=== PATIENT | female | born 1930 ===

== ENCOUNTER 2017-11-15 17:50 | Inpatient (IN) | payer MEDICARE, OTHER ==
[2017-11-15 17:50] VITALS: BMI 26.5
[2017-11-15] MEDS ORDERED: Albuterol-Ipratrop 3 mg / 0.5 (3 ml) UD INH STA (18:59)
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
[2017-11-15 20:03] LABS: BASO % 0.2 % (0.0-2.0); HEMOGLOBIN 12.8 g/dL (12.0-16.0); LYMPH # 0.9 K/uL (1.0-4.3); LYMPH % 8.5 % (20.0-40.0); MEAN CORPUSCULAR HEMOGLOBIN 32.3 pg (27.0-31.0); MEAN CORPUSCULAR HGB CONC 33.7 g/dL (33.0-37.0); MEAN PLATELET VOLUME 8.2 fl (7.2-11.7); MONO # 0.3 K/uL (0.0-0.8); MONO % 2.5 % (0.0-10.0); NEUT # 9.3 K/uL (1.8-7.0); NEUT % 88.8 % (50.0-75.0); PLATELET COUNT 285 K/uL (130-400); RBC 3.96 Mil/uL (3.80-5.20); RED CELL DISTRIBUTION WIDTH 14.8 % (11.5-14.5); WHITE BLOOD COUNT 10.5 K/uL (4.8-10.8)
[2017-11-15 20:27] LABS: INR 0.9 (0.9-1.2); PARTIAL THROMBOPLASTIN TIME 27.8 Seconds (25.6-37.1); PROTHROMBIN TIME 10.4 Seconds (9.8-13.1)
[2017-11-15 20:30] LABS: ALB/GLOB RATIO 1.2 (1.0-2.1); ALBUMIN 3.5 g/dL (3.5-5.0); ALT/SGPT 35 U/L (9-52); AST/SGOT 29 U/L (14-36); BLOOD UREA NITROGEN 27 mg/dl (7-17); CALCIUM 8.8 mg/dL (8.4-10.2); GFR AFRICAN-AMERICAN > 60; GFR NON-AFRICAN AMERICAN > 60; MAGNESIUM 2.1 MG/DL (1.6-2.3)
[2017-11-15 20:38] LABS: B-TYPE NATRIURETIC PEPTIDE 320 pg/ml (0-900)
[2017-11-15 20:54] LABS: BANDS 3 % (0-2); LYMPHOCYTE 6 % (20-50); MONOCYTE 2 % (0-10); NEUTROPHIL 84 % (42-75); REACTIVE LYMPHOCYTES 5 % (0-0); TOTAL CELLS COUNTED 100
[2017-11-15 20:55] LABS: ANISOCYTOSIS SLIGHT; HYPOCHROMIC SLIGHT; POIKILOCYTOSIS SLIGHT
[2017-11-15 20:56] LABS: OVALOCYTES SLIGHT; SPHEROCYTES SLIGHT; TEARDROP CELLS SLIGHT
[2017-11-15 20:57] LABS: PLATELET ESTIMATE NORMAL (NORMAL)
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
[2017-11-15 21:38] LABS: SQUAMOUS EPITHIAL 1 /hpf (0-5); URINE BACTERIA OCC (<OCC); URINE BILIRUBIN NEGATIVE (NEGATIVE); URINE BLOOD SMALL (NEGATIVE); URINE CLARITY CLOUDY (Clear); URINE COLOR YELLOW (YELLOW); URINE GLUCOSE (UA) >=500 mg/dL (Normal); URINE LEUKOCYTE ESTERASE MOD Leu/uL (Negative); URINE NITRATE NEGATIVE (NEGATIVE); URINE PROTEIN 100 mg/dL (NEGATIVE); URINE UROBILINOGEN 0.2-1.0 mg/dL (0.2-1.0)
[2017-11-15] MEDS ORDERED: Patient's Own Med (Mometasone Furoate [Nasonex] 2 SPRAY) NAS PRN (21:50)
[2017-11-15] MEDS ORDERED: Oxycodone/Acetaminophen 5/325 mg Tab PO PRN (21:50)
[2017-11-15] MEDS ORDERED: Albuterol-Ipratrop 3 mg / 0.5 (3 ml) UD INH PRN (21:53)
[2017-11-15] MEDS ORDERED: levoFLOXacin 750 mg in D5W 150 ML BAG IVPB STA (22:29)
[2017-11-15] MEDS ORDERED: levoFLOXacin 750 mg in D5W 750 MG/150 ML BAG IVPB STA ×2 (22:45→23:30)
[2017-11-15] MEDS ORDERED: levoFLOXacin 750 mg in D5W 750 MG/150 ML BAG IVPB ONE (22:46)
[2017-11-15] MEDS: Insulin Lispro (humaLOG) 100 Units/ml Inj SC SCH (23:08)
[2017-11-16 06:56] LABS: MEAN CELL VOLUME 95.3 fl (81.0-99.0); MEAN CORPUSCULAR HEMOGLOBIN 31.7 pg (27.0-31.0); MEAN CORPUSCULAR HGB CONC 33.2 g/dL (33.0-37.0); RBC 3.77 Mil/uL (3.80-5.20); RED CELL DISTRIBUTION WIDTH 14.5 % (11.5-14.5)
[2017-11-16 08:25] LABS: BLOOD UREA NITROGEN 22 mg/dl (7-17); CALCIUM 8.8 mg/dL (8.4-10.2); GFR AFRICAN-AMERICAN > 60; GFR NON-AFRICAN AMERICAN > 60
[2017-11-16] MEDS ORDERED: guaiFENesin-Codeine 100-10mg/5ml Syrup (5 ml) UD PO PRN (08:53)
[2017-11-16] MEDS ORDERED: levoFLOXacin 750 mg in D5W 750 MG/150 ML BAG IVPB SCH (09:00)
[2017-11-16] MEDS ORDERED: levoFLOXacin 750 mg in D5W 150 ML BAG IVPB SCH (09:00)
[2017-11-16] MEDS ORDERED: methylPREDNISolone 30 MG in Sodium Chloride 0.9% 50 ML IVPB SCH (11:15)
[2017-11-16] MEDS: Insulin Lispro (humaLOG) 100 Units/ml Inj SC SCH ×2 (11:33→22:26)
[2017-11-16] MEDS: Enoxaparin 30 mg Syringe SC SCH (11:37)
[2017-11-16] MEDS ORDERED: Albuterol 0.083% Inhal Sol (2.5 mg/3 mL) UD INH PRN (11:39)
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
[2017-11-16] MEDS ORDERED: MethylPREDNISolone 40 mg Vial ONE (11:48)
--- NOTE | 2017-11-16 12:30 | RAD ---
HISTORY: sob COMPARISON: Unenhanced chest CT 11/11/2016, frontal chest radiograph 10/01/2016. FINDINGS: LUNGS: No acute infiltrate is seen at this time. Fibrotic changes are again noted at the right apex in this apical lordotic type frontal radiograph. Bilateral apical cavitary findings are better evaluated by CT with resolution of limited possibility at this time. PLEURA: No significant pleural effusion identified, no pneumothorax apparent. CARDIOVASCULAR: Normal. OSSEOUS STRUCTURES: No significant abnormalities. VISUALIZED UPPER ABDOMEN: Normal. OTHER FINDINGS: None. IMPRESSION: No acute infiltrate identified bilaterally. Fibrotic likely post granulomatous changes are better seen at the right than left lung apex. Prominent cavitation is not identified at this time though CT is a better vehicle for identification of medium to small cavitary lesions than chest radiography.
[2017-11-16] MEDS ORDERED: Albuterol 0.083% Inhal Sol (2.5 mg/3 mL) UD ONE (14:25)
[2017-11-16] MEDS ORDERED: guaiFENesin-Codeine 100-10mg/5ml Syrup (5 ml) UD ONE (14:26)
[2017-11-16] MEDS: guaiFENesin-Codeine 100-10mg/5ml Syrup (5 ml) UD PO SCH ×2 (14:27→21:54)
--- NOTE | 2017-11-16 14:40 | CT ---
PROCEDURE: CT Chest without contrast HISTORY: RUL cavity COMPARISON: Unenhanced chest CT 11/11/2016. TECHNIQUE: Contiguous axial images were obtained through the chest without intravenous contrast enhancement. Sagittal and coronal reconstructions were performed. Radiation dose (DLP): 464.37 mGy-cm. This CT exam was performed using one or more of the following dose reduction techniques: Automated exposure control, adjustment of the mA and/or kV according to patient size, and/or use of iterative reconstruction technique. FINDINGS: LUNGS: A mild but further reduction in size of a cavitary lesion in the right apex is appreciated which now measures 2.5 x 2.2 cm compared to 2.6 cm greatest dimension on 11/11/2016. Peripheral soft tissue thickening is also reduced with residual bronchiectasis remaining somewhat at the right upper lobe as well as local small nodules. Partial calcification is again appreciated suggesting CT granulomatous etiology once again. Limited nodular changes are again seen the left upper lobe with a small cavitary lesion remaining just under 1 cm size once again, stable in the interval. Associated limited patchy densities reduced at the left upper lobe as well as the bilateral lower lobes. Central airways appear stable. MEDIASTINUM: The thoracic inlet is remarkable for mild right thyroid lobe enlarged once again. Unremarkable thoracic aorta. No aneurysm. Normal sized heart. Main pulmonary artery remains dilated indicative of pulmonary artery hypertension. No lymphadenopathy. PLEURA: No pleural fluid. No pneumothorax. BONES: No fracture. No destructive lesion. UPPER ABDOMEN: Grossly unremarkable. OTHER FINDINGS: None. IMPRESSION: 1. Further reduction though mild and cavitary lesion of the right apex with stable limited cavitary lesion at the left apex. Associated nodularity cyst is again seen surrounding the right-sided cavitary lesion and is minimally scattered at the bilateral upper lobes and minimally at the right lower lobe once again. Findings likely a reflects granulomatous disease though other infectious or inflammatory causes are not excluded. 2. Pulmonary artery hypertension again evident.
[2017-11-16] MEDS: Albuterol-Ipratrop 3 mg / 0.5 (3 ml) UD INH SCH ×3 (16:00→19:29)
[2017-11-16] MEDS: MethylPREDNISolone 40 mg Vial IVP SCH ×2 (16:33→21:53)
--- NOTE | 2017-11-16 17:03 | CP.PCM.PN ---
Subjective - Date & Time of Evaluation Date of Evaluation: 11/16/17 Time of Evaluation: 12:00 - Subjective Subjective: Pt is afebrile still with cough SOB only when she gets couging spells denies CP no abd pain no headache Objective - Vital Signs/Intake and Output Vital Signs (last 24 hours): Temp Pulse Resp BP Pulse Ox 97.9 F 58 L 16 136/52 L 97 11/16/17 06:41 11/16/17 06:41 11/16/17 06:41 11/16/17 06:41 11/16/17 06:41 - Medications Medications: Current Medications Albuterol Sulfate (Albuterol 0.083% Inhal Lorena (2.5 Mg/3 Ml) Ud) 2.5 mg INH RQ4 PRN PRN Reason: Shortness of Breath Last Admin: 11/16/17 15:30 Dose: 2.5 mg Albuterol/Ipratropium (Duoneb 3 Mg/0.5 Mg (3 Ml) Ud) 3 ml INH RQID [facility] Docusate Sodium (Colace) 100 mg PO BID [facility] Last Admin: 11/16/17 11:36 Dose: 100 mg Ezetimibe (Zetia) 10 mg PO DAILY [facility] Last Admin: 11/16/17 11:36 Dose: 10 mg Enoxaparin Sodium (Lovenox) 30 mg SC DAILY [facility] PRN Reason: Protocol Last Admin: 11/16/17 11:37 Dose: 30 mg Ferrous Sulfate (Feosol) 325 mg PO DAILY [facility] Fluticasone Propionate (Flonase) 2 spr STEPHEN DAILY PRN PRN Reason: ALLERGY SYMPTOMS Folic Acid (Folic Acid) 1 mg PO DAILY [facility] Last Admin: 11/16/17 11:36 Dose: 1 mg Guaifenesin/Codeine Phosphate (Robitussin W/Codeine) 5 ml PO QID [facility] Last Admin: 11/16/17 14:27 Dose: 5 ml Home Med (Febuxostat [Uloric]) 40 mg PO DAILY [facility] Last Admin: 11/16/17 16:31 Dose: 40 mg Home Med (Solifenacin Succinate [Vesicare]) 10 mg PO HS [facility] Levofloxacin/Dextrose (Levaquin 750mg) 750 mg in 150 mls @ 150 mls/hr IVPB DAILY [facility] Last Admin: 11/16/17 11:25 Dose: 150 mls/hr Insulin Human Lispro (Humalog) 0 units SC ACHS [facility] PRN Reason: Protocol Last Admin: 11/16/17 11:33 Dose: 2 units Loratadine (Claritin) 10 mg PO DAILY [facility] Last Admin: 11/16/17 11:36 Dose: 10 mg Magnesium Oxide (Mag-Ox) 400 mg PO DAILY [facility] Metformin HCl (Glucophage) 500 mg PO DAILYWM [facility] Methylprednisolone (Solu-Medrol) 30 mg IVP Q12 [facility] Last Admin: 11/16/17 16:33 Dose: 30 mg Multivitamins/Minerals (Therapeutic-M Tab) 1 tab PO DAILY [facility] Oxycodone/Acetaminophen (Percocet 5/325 Mg Tab) 1 tab PO Q4 PRN PRN Reason: Pain, moderate (4-7) Stop: 11/18/17 21:51 Sennosides (Senokot Tab) 8.6 mg PO DAILY [facility] Tramadol HCl (Ultram) 50 mg PO Q4 PRN PRN Reason: Pain, Mild (1-3) Zolpidem Tartrate (Ambien) 5 mg PO HS [facility] - Labs Labs: 11/16/17 06:30 11/16/17 06:30 PT 10.4 Seconds (9.8-13.1) 11/15/17 19:52 INR 0.9 (0.9-1.2) 11/15/17 19:52 APTT 27.8 Seconds (25.6-37.1) 11/15/17 19:52 - Constitutional Appears: No Acute Distress - Head Exam Head Exam: NORMAL INSPECTION, NORMOCEPHALIC - Eye Exam Eye Exam: Normal appearance Pupil Exam: NORMAL ACCOMODATION - ENT Exam ENT Exam: Mucous Membranes Moist, Normal External Ear Exam - Neck Exam Neck Exam: Full ROM. absent: Meningismus - Respiratory Exam Respiratory Exam: Rhonchi, NORMAL BREATHING PATTERN. absent: Wheezes, Respiratory Distress - Cardiovascular Exam Cardiovascular Exam: REGULAR RHYTHM, +S1, +S2 - GI/Abdominal Exam GI & Abdominal Exam: Soft, Normal Bowel Sounds. absent: Tenderness - Extremities Exam Extremities Exam: Full ROM, Normal Capillary Refill. absent: Calf Tenderness - Back Exam Back Exam: Full ROM. absent: CVA tenderness (L), CVA tenderness (R) - Neurological Exam Neurological Exam: Alert, Awake, Oriented x3 - Psychiatric Exam Psychiatric exam: Normal Affect, Normal Mood - Skin Skin Exam: Dry, Normal Color, Warm Assessment and Plan (1) Acute bronchitis Status: Acute (2) Cavitary lesion of lung Status: Chronic (3) DM2 (diabetes mellitus, type 2) Status: Chronic (4) Brain mass Status: Chronic (5) Rheumatoid arthritis Status: Chronic (6) DVT prophylaxis Status: Acute - Assessment and Plan (Free Text) Assessment: 87 y/o lady with hx of RA, PTB, DM , HTN, came in because of dry cough for the past 2 weeks . Denies fever. Occ SOB when she gets coughing spells. No CP . CXR: fibrotic , granulomatous changes CT of chest :1. Further reduction though mild and cavitary lesion of the right apex with stable limited cavitary lesion at the left apex. Associated nodularity cyst is again seen surrounding the right-sided cavitary lesion and is minimally scattered at the bilateral upper lobes and minimally at the right lower lobe once again. Findings likely a reflects granulomatous disease though other infectious or inflammatory causes are not excluded. 2. Pulmonary artery hypertension again evident. (1) Acute bronchitis, need to r/o beginning PNA Status: Acute CT of chest showed old cavitary/granulomatous dis , improved from previous no acute infiltrate empirically started on Iv Levaquin start IV Solumedrol 30mg q 12 cont Duoneb treatments Pulmonary consult Sputum culture (2) Cavitary lesion of lung, old Status: Chronic Pt was previously dx and completed treated for PTB (3) DM2 (diabetes mellitus, type 2) Status: Chronic accucheck with coverage cont Metformin 4. Thyroid Enlargement seen on CT - check TSH - Thyroid sonogram (5) Brain mass Status: Chronic hx of brain lesion ? 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 UTI - UA showed WBC and Leukoest - Urine c/s - pt on Levaquin DVT prophylaxis Status: Acute Lovenox
[2017-11-16] MEDS ORDERED: Sodium Chloride 3% for Inhalation 4 ML VIAL.NEB IH PRN (17:13)
[2017-11-16] MEDS ORDERED: Albuterol-Ipratrop 3 mg / 0.5 (3 ml) UD ONE (17:52)
--- NOTE | 2017-11-16 22:17 | CARD ---
APPROVED REPORT EKG Measurement Heart [id number] <Conclusion> Normal sinus rhythm Left axis deviation Left bundle branch block Abnormal ECG
[2017-11-17 07:38] LABS: BLOOD UREA NITROGEN 24 mg/dl (7-17); CALCIUM 8.7 mg/dL (8.4-10.2); GFR AFRICAN-AMERICAN > 60; GFR NON-AFRICAN AMERICAN > 60
[2017-11-17] MEDS: Albuterol-Ipratrop 3 mg / 0.5 (3 ml) UD INH SCH ×4 (08:27→19:54)
--- NOTE | 2017-11-17 09:55 | US ---
HISTORY: thyroid enalrgement seen on CT TECHNIQUE: Sonographic evaluation of the thyroid gland. COMPARISON: Correlation is made to CT scan of the chest dated 11/16/2017 FINDINGS: RIGHT LOBE: Measures 6.3 x 2.6 x 2.9 cm. Heterogeneous echotexture. Multiple nodules, the 3 largest include: 1. Anterolateral upper pole solid hypoechoic nodule measuring 1.1 x 0.9 x 0.7 cm 2. Anterolateral midpole hypoechoic solid nodule measuring 1.5 x 1.0 x 0.8 cm 3. Posterior lower pole predominantly solid nodule measuring 2.1 x 1.9 x 1.8 cm LEFT LOBE: Measures 4.9 x 1.9 x 2.1 cm. Heterogeneous echotexture Multiple nodules, the 3 largest include: 1. Anterior upper pole hypoechoic nodule measuring 0.6 x 0.5 x 0.4 cm 2. Anterolateral midpole solid hypoechoic nodule measuring 1.0 x 0.9 x 0.5 cm 3. Posterior lateral lower pole isoechoic nodule measuring 1.5 x 0.8 x 1.0 cm ISTHMUS: Measures 0.6 cm. Normal echotexture and flow. Nodules: Hypoechoic nodule measuring 0.9 x 0.6 x 0.4 cm OTHER FINDINGS: None . IMPRESSION: Multiple bilateral thyroid nodules, the largest of which measures up to 2.1 cm in the right lower pole. Histopathologic correlation can be obtained as clinically warranted.
[2017-11-17] MEDS: guaiFENesin-Codeine 100-10mg/5ml Syrup (5 ml) UD PO SCH ×4 (10:00→22:10)
[2017-11-17] MEDS: Enoxaparin 30 mg Syringe SC SCH (10:47)
[2017-11-17] MEDS: Insulin Lispro (humaLOG) 100 Units/ml Inj SC SCH ×4 (10:48→22:30)
[2017-11-17] MEDS: Multivitamin With Minerals Tab PO SCH (10:49)
[2017-11-17] MEDS: MethylPREDNISolone 40 mg Vial IVP SCH (10:50)
[2017-11-17] MEDS: Magnesium Oxide 400 mg Tab UD PO SCH (10:50)
--- NOTE | 2017-11-17 11:07 | CP.PCM.PN ---
Subjective - Date & Time of Evaluation Date of Evaluation: 11/17/17 Time of Evaluation: 09:30 - Subjective Subjective: Pt seen and examined at bedside, resting well in bed. Pt reports improvements in symptoms at admission. Denies: CP/SOB/N/V, dysuria. Objective - Vital Signs/Intake and Output Vital Signs (last 24 hours): Temp Pulse Resp BP Pulse Ox 98.3 F 58 L 20 133/65 96 11/17/17 08:13 11/17/17 08:13 11/17/17 08:13 11/17/17 08:13 11/17/17 08:13 - Medications Medications: Current Medications Albuterol Sulfate (Albuterol 0.083% Inhal Lorena (2.5 Mg/3 Ml) Ud) 2.5 mg INH RQ4 PRN PRN Reason: Shortness of Breath Last Admin: 11/16/17 15:30 Dose: 2.5 mg Albuterol/Ipratropium (Duoneb 3 Mg/0.5 Mg (3 Ml) Ud) 3 ml INH RQID [facility] Last Admin: 11/17/17 08:27 Dose: 3 ml Docusate Sodium (Colace) 100 mg PO BID [facility] Last Admin: 11/17/17 10:49 Dose: 100 mg Ezetimibe (Zetia) 10 mg PO DAILY [facility] Last Admin: 11/17/17 10:49 Dose: 10 mg Enoxaparin Sodium (Lovenox) 30 mg SC DAILY [facility] PRN Reason: Protocol Last Admin: 11/17/17 10:47 Dose: 30 mg Ferrous Sulfate (Feosol) 325 mg PO DAILY [facility] Last Admin: 11/17/17 10:49 Dose: 325 mg Fluticasone Propionate (Flonase) 2 spr STEPHEN DAILY PRN PRN Reason: ALLERGY SYMPTOMS Folic Acid (Folic Acid) 1 mg PO DAILY [facility] Last Admin: 11/17/17 10:49 Dose: 1 mg Guaifenesin/Codeine Phosphate (Robitussin W/Codeine) 5 ml PO QID [facility] Last Admin: 11/16/17 21:54 Dose: 5 ml Home Med (Febuxostat [Uloric]) 40 mg PO DAILY [facility] Last Admin: 11/17/17 10:48 Dose: 40 mg Home Med (Solifenacin Succinate [Vesicare]) 10 mg PO [facility] Levofloxacin/Dextrose (Levaquin 750mg) 750 mg in 150 mls @ 100 mls/hr IVPB DAILY [facility] Insulin Human Lispro (Humalog) 0 units SC ACHS [facility] PRN Reason: Protocol Last Admin: 11/17/17 10:48 Dose: 2 units Loratadine (Claritin) 10 mg PO DAILY [facility] Last Admin: 11/17/17 10:49 Dose: 10 mg Magnesium Oxide (Mag-Ox) 400 mg PO DAILY [facility] Last Admin: 11/17/17 10:50 Dose: 400 mg Metformin HCl (Glucophage) 500 mg PO DAILYWM [facility] Last Admin: 11/17/17 10:49 Dose: 500 mg Methylprednisolone (Solu-Medrol) 30 mg IVP Q12 [facility] Last Admin: 11/17/17 10:50 Dose: 30 mg Multivitamins/Minerals (Therapeutic-M Tab) 1 tab PO DAILY [facility] Last Admin: 11/17/17 10:49 Dose: 1 tab Oxycodone/Acetaminophen (Percocet 5/325 Mg Tab) 1 tab PO Q4 PRN PRN Reason: Pain, moderate (4-7) Stop: 11/18/17 21:51 Sennosides (Senokot Tab) 8.6 mg PO DAILY [facility] Last Admin: 11/17/17 10:50 Dose: 8.6 mg Tramadol HCl (Ultram) 50 mg PO Q4 PRN PRN Reason: Pain, Mild (1-3) Zolpidem Tartrate (Ambien) 5 mg PO [facility] Last Admin: 11/16/17 21:54 Dose: 5 mg - Labs Labs: 11/16/17 06:30 11/17/17 06:00 PT 10.4 Seconds (9.8-13.1) 11/15/17 19:52 INR 0.9 (0.9-1.2) 11/15/17 19:52 APTT 27.8 Seconds (25.6-37.1) 11/15/17 19:52 - Constitutional Appears: Well, No Acute Distress - Eye Exam Eye Exam: EOMI - Neck Exam Neck Exam: Full ROM - Respiratory Exam Respiratory Exam: Clear to Ausculation Bilateral, NORMAL BREATHING PATTERN. absent: Wheezes - Cardiovascular Exam Cardiovascular Exam: REGULAR RHYTHM, +S1, +S2 - GI/Abdominal Exam GI & Abdominal Exam: Soft, Normal Bowel Sounds. absent: Tenderness - Extremities Exam Extremities Exam: absent: Calf Tenderness - Neurological Exam Neurological Exam: Alert, Awake, CN II-XII Intact, Oriented x3 - Psychiatric Exam Psychiatric exam: Normal Affect, Normal Mood Assessment and Plan - Assessment and Plan (Free Text) Plan: 87 y/o F with pmhx RA, previously treated TB, DM, HTN presented with acute asthma exacerbation. 1) Asthma exacerbation - CT Chest: old cavitary lesion/granulomatous diseae; no acute infiltrate - Continue: Levaquin 750 mg, methylprednisolone 30 mg IVP daily, Duonebs, Albuterol inhaler; Magnesium Oxide 400 mg PO qdaily - Pulmonary: Dr. 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
--- NOTE | 2017-11-17 11:35 | PQF GENQUE ---
Dr. Bush, Please clarify type of asthma: if ruled in and if known: or is Asthma ruled out? Childhood Cough variant Exercise induced Late onset Mild intermittent Mild persistent Moderate persistent Severe persistent With bronchitis(please clarify acuity of bronchitis) With chronic lung disease (please document specific chronic lung disease) Other (please specify) Clinically unable to determine Unknown H and P: History: PULMONARY Hx Asthma: (DENIES ASTHMA-USES NEB. INHALER DUE TO LUNG MASS-SOB) Hx Chronic Obstructive Pulmonary Disease (COPD): No Impression includes: 1) Asthma exac, ?HCAP -Admit med-surg -Cont -Q6H duonebs -f/u cultures DRAFT: Pulmonary consult: - Hx.: PULMONARY Hx Asthma: (DENIES ASTHMA-USES NEB. INHALER DUE TO LUNG MASS-SOB) Hx Chronic Obstructive Pulmonary Disease (COPD): No Impression: Assessment Plan : (1) Asthma exacerbation Status: Acute Priority : High (2) Pulmonary infiltrate Status: Chronic Priority: High 11/16 Attending progress note: hx of RA, PTB, DM , HTN, came in because of dry cough for the past 2 weeks . 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 Indicators present [] Specify: [] [] Specify: [] [] Specify: [] [] Specify: [] Location in the medical record that reflects the above clinical findings: [] Treatment Provided: [] PHYSICIAN'S RESPONSE Patient has bronchial asthma secondary to acute bronchitis Based on your medical judgment of the clinical indicators outlined above please clarify the following: [] Practitioner response [] If unable to determine, please check the box, sign and date. Present On Admission (POA) Indicator: [] Present at the time of admission [] Not present at the time of admission [] Clinically Undetermined In responding to this query, please exercise your independent professional judgment. The fact that a question is asked does not imply that any particular answer is desired or expected. Thank you for your clarification on this documentation. If you have any questions please call. * Thank you, Selma Jean RN ext. #[phone] MTDD
--- NOTE | 2017-11-17 12:23 | PQF GENQUE ---
Dr. Bush, Please specify type of pneumonia or possoible type of pneumonia in the progress notes:if known and if ruled in versus pneumonia ruled out Note: CAP, HAP, and HCAP indicate where the pneumonia was acquired, not a specific type. i.e. Aspiration pneumonia Please document specific aspirate (food, liquids, etc.) Please indicate if this is postprocedural Bacterial (specify organism) Bronchopneumonia (specify organism) Interstitual pneumonia Organizing pneumonia/BOOP Pneumonia with influenza, maine flu, or H1N1 flu RSV pneumonia Tuberculosis, pulmonary Viral pneumonia Other pneumonia (specify organism or type) Clinically unable to determine Unknown Note: Probable and suspected conditions can be coded as if they exist if still documented at the time of discharge. 2. Please specify the organism causing the pneumonia: if known after the work up is completed H and P:dxs. include: (1) HCAP (healthcare-associated pneumonia) Assessment and Plan: 87 y/o female here with worsening resp symptoms in setting of recent hospitalization. 11/16 progress note: Attending: Acute bronchitis, need to r/o beginning PNA Status: Acute CT of chest showed old cavitary/granulomatous dis , improved from previous no acute infiltrate empirically started on Iv Levaquin start IV Solumedrol 30mg q 12 cont Duoneb treatments Pulmonary consult Sputum culture This form is a permanent part of the medical record Clarification of your documentation is requested to better reflect the severity of illness and intensity of treatment of your patient. Indicators present [] Specify: [] [] Specify: [] [] Specify: [] [] Specify: [] Location in the medical record that reflects the above clinical findings: [] Treatment Provided: [] PHYSICIAN'S RESPONSE Pneumonia ruled out Based on your medical judgment of the clinical indicators outlined above please clarify the following: [] Practitioner response [] If unable to determine, please check the box, sign and date. Present On Admission (POA) Indicator: [] Present at the time of admission [] Not present at the time of admission [] Clinically Undetermined In responding to this query, please exercise your independent professional judgment. The fact that a question is asked does not imply that any particular answer is desired or expected. Thank you for your clarification on this documentation. If you have any questions please call. * Thank you, Selma Jean RN ext. #[phone] MTDD
[2017-11-17] MEDS ORDERED: Gadodiamide 287 MG/ML VIAL (15ML) IV ONE (13:23)
[2017-11-17 14:14] LABS: T4 6.32 ug/dl (5.5-11.0)
[2017-11-17 14:27] LABS: T3 0.617 nmol/L (1.49-2.60)
--- NOTE | 2017-11-17 14:37 | MRI ---
PROCEDURE: MRI BRAIN WITH AND WITHOUT CONTRAST HISTORY: brain lesion ? COMPARISON: Noncontrast head CT from 10/01/2016 and MRI brain without and with intravenous contrast from 01/01/2016 TECHNIQUE: Multiplanar, multisequence MR images of the brain were obtained with and without intravenous contrast enhancement. 13 cc Omniscan was injected intravenously. FINDINGS: HEMORRHAGE: None DWI: No evidence of an acute or early subacute infarction. BRAIN PARENCHYMA: There is little interval change in the size and appearance of T1 hyperintense and T2 hypo intense nonenhancing round subcentimeter (8 mm) lesion overlying the frontal horn of the left lateral ventricle. There are mild chronic microangiopathic changes. There is no mass effect or abnormal extra-axial fluid collection. There is a partially empty sella, otherwise the midline sagittal structures are normal. ENHANCEMENT: No abnormal intracranial enhancement. VENTRICLES: There is mild age-related global parenchymal volume loss and proportionate enlargement of the ventricles and cortical sulci with frontal and parietal lobe predominance. There is also prominence of posterior fossa extra-axial CSF spaces. CRANIUM: There is normal bone marrow signal pattern. ORBITS: Grossly unremarkable. PARANASAL SINUSES/MASTOIDS: There is fluid in the right maxillary sinus with aerosolized secretions and moderate mucosal disease in the paranasal sinuses, worse in the right sphenoid chamber. VASCULAR SYSTEM: There are normal signal voids in the larger intracranial arteries. OTHER FINDINGS: None . IMPRESSION: 1. No acute intracranial abnormality. 2. Little interval change in known 8 mm left frontal horn intraventricular/periventricular nonenhancing lesion which may represent an intraventricular meningioma, sub- ependymoma or calcified granuloma. 3. Mild chronic microangiopathic changes and mild age-related parenchymal volume loss with frontal and parietal predominance. 4. Chronic pansinusitis, aerosolized secretions and fluid level in the right maxillary sinus may represent acute sinusitis in the appropriate clinical setting.
[2017-11-17] MEDS: levoFLOXacin 750 mg in D5W 750 MG/150 ML BAG IVPB SCH (15:40)
[2017-11-18 00:02] VITALS: PULSE 69
--- NOTE | 2017-11-18 01:42 | CON ---
ENDOCRINOLOGY CONSULTATION DATE: LOCATION: Room 665. HISTORY OF PRESENT ILLNESS: This is an 87-year-old female with known history of chronic obstructive lung disease, presenting here with acute exacerbation of asthmatic bronchitis and has been started on steroid therapy and also has concomitant pneumonia with ongoing IV antibiotic management as given. She is being referred now for endocrine evaluation of abnormal thyroid studies with thyroid ultrasound also undertaken at this time. PAST MEDICAL HISTORY: As mentioned above, history of type 2 diabetes currently on metformin taken as 500 mg once daily, history of hypertensive cardiovascular disease and dyslipidemia, history of chronic obstructive lung disease with previous admissions for acute exacerbations of the same, history of diffuse osteoarthritis and underlying osteoporosis. There is also a known history of a thyroid disorder, but the exact nature is not known at this time and the patient is not on any kind of thyroid medications as reviewed on the medication list. FAMILY HISTORY: Positive for hypertension and diabetes. SOCIAL HISTORY: The patient has supportive family. No known substance use. REVIEW OF SYSTEMS: As mentioned above; admits to generalized body weakness with easy fatigability and tiredness and suboptimal energy level. Also admits to dizziness and lightheadedness, worse on the day of admission. No chest pains or palpitations, but admits to progressive shortness of breath initially on exertion and then at rest with paroxysmal nocturnal dyspnea. She also admits to a productive cough with pleuritic chest pain. Her oral intake has been variable with nausea and dyspepsia and habitual constipation. PHYSICAL EXAMINATION GENERAL: This is an average built female in no apparent distress. VITAL SIGNS: Blood pressure of 140/80, pulse of 70 beats per minute regular, temperature 98 and respirations 20. Height is 5 feet 2 inches and weight is 150 pounds. HEENT: Head is normocephalic. Eyes anicteric with pink conjunctivae. Funduscopy not possible at this time. Ears, nose and throat otherwise normal. NECK: Supple. Thyroid gland shows nodular thyromegaly, which is firm and nontender with no overt dominant nodules noted. No cervical adenopathy also palpable at this time. HEART: Adynamic precordium. S1 and S2 is rapid and regular. LUNGS: Shows scattered rhonchi bilaterally. ABDOMEN: Flat, soft with positive bowel sounds. EXTREMITIES: No peripheral edema. Pulses are +2 bilaterally. LABORATORY DATA: The chemistry showed a BUN of 24, sodium 143, potassium 4.4, chloride 107, CO2 is 25, glucose is 173 and creatinine 0.8. Her glucose levels have ranged from 116 to 183 mg/dL. Her thyroid studies showed a T4 of 6.32 with a T3 of 0.617 and a TSH of 0.29. Her thyroid ultrasound showed the right lobe measuring 6.3 x 2.6 cm and the left lobe measuring 4.9 x 1.9 cm with multiple small nodules bilaterally as noted. ASSESSMENT: This is an 87-year-old female with acute exacerbation of chronic obstructive pulmonary disease, presenting with acute asthmatic bronchitis and started on IV steroid therapy for management of bronchospasm and is now being referred for endocrine evaluation because of abnormal thyroid studies as noted. She remains clinically and biochemically euthyroid at this time and her thyroid indices are consistent with the so called acute sick euthyroid syndrome with a low T3 and with further TSH suppression from the intercurrent IV steroid therapy as given. Moreover she has an underlying multinodular goiter with no overt compressive or obstructive manifestations and with also very minute bilateral small nodules self autonomous with the dimensions of the thyroid lobes as mentioned. PLAN OF MANAGEMENT: Will obtain a comprehensive thyroid hormonal profile and also include thyroid antibodies which will confirm and/or indicate the presence of thyroid autoimmunity. There is no indication at this time for any kind of thyroid pharmacotherapy. Should expect improvement of her biochemical indices as her clinical status improves accordingly. We will try to refrain from giving metformin if at all possible not only with advanced age of the patient, but also with the reduced GFR even with normal renal indices as noted. Will continue the low-dose correction scale using Humalog insulin as given. We will hold off any kind of basal insulin as her glycemic profile and fluctuations are really near optimal at this time. We will obtain a hemoglobin A1c to confirm her prior glycemic control and serial chemistries will be obtained accordingly. We will follow. Jaye Allen MD
[2017-11-18 06:35] LABS: HEMOGLOBIN 12.1 g/dL (12.0-16.0); MEAN CELL VOLUME 95.1 fl (81.0-99.0); MEAN CORPUSCULAR HEMOGLOBIN 32.8 pg (27.0-31.0); MEAN CORPUSCULAR HGB CONC 34.5 g/dL (33.0-37.0); RBC 3.69 Mil/uL (3.80-5.20); RED CELL DISTRIBUTION WIDTH 14.3 % (11.5-14.5); WHITE BLOOD COUNT 8.4 K/uL (4.8-10.8)
[2017-11-18 06:50] LABS: BLOOD UREA NITROGEN 26 mg/dl (7-17); CALCIUM 8.8 mg/dL (8.4-10.2); GFR AFRICAN-AMERICAN > 60; GFR NON-AFRICAN AMERICAN > 60
[2017-11-18] MEDS: Albuterol-Ipratrop 3 mg / 0.5 (3 ml) UD INH SCH ×2 (07:37→11:26)
[2017-11-18 08:10] VITALS: BP 119/57; RESP 20; TEMP 97.4; O2SAT 96
[2017-11-18] MEDS: Insulin Lispro (humaLOG) 100 Units/ml Inj SC SCH ×2 (08:33→11:53)
[2017-11-18] MEDS: Magnesium Oxide 400 mg Tab UD PO SCH (08:34)
[2017-11-18] MEDS: Enoxaparin 30 mg Syringe SC SCH (08:34)
[2017-11-18] MEDS: Multivitamin With Minerals Tab PO SCH (08:35)
[2017-11-18] MEDS: levoFLOXacin 750 mg in D5W 750 MG/150 ML BAG IVPB SCH (08:37)
--- NOTE | 2017-11-18 08:48 | CP.PCM.PN ---
Subjective - Date & Time of Evaluation Date of Evaluation: 11/17/17 Time of Evaluation: 13:00 - Subjective Subjective: Appears comfortable. Has had MRI of brain today. Apparent UTI with gm neg rods (on levofloxacin). 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 No signs of current mycobacterial process, had been treated effectively for extended period. Empiric rx for UTI and continued aerosol therapy and diabetes management. Objective - Vital Signs/Intake and Output Vital Signs (last 24 hours): Temp Pulse Resp BP Pulse Ox 97.4 F L 69 20 119/57 L 96 11/18/17 08:08 11/18/17 08:08 11/18/17 08:08 11/18/17 08:08 11/18/17 08:08 - Medications Medications: Current Medications Albuterol Sulfate (Albuterol 0.083% Inhal [place] (2.5 Mg/3 Ml) Ud) 2.5 mg INH RQ4 PRN PRN Reason: Shortness of Breath Last Admin: 11/16/17 15:30 Dose: 2.5 mg Albuterol/Ipratropium (Duoneb 3 Mg/0.5 Mg (3 Ml) Ud) 3 ml INH RQID [facility] Last Admin: 11/18/17 07:37 Dose: 3 ml Docusate Sodium (Colace) 100 mg PO BID [facility] Last Admin: 11/18/17 08:32 Dose: 100 mg Ezetimibe (Zetia) 10 mg PO DAILY [facility] Last Admin: 11/18/17 08:35 Dose: 10 mg Enoxaparin Sodium (Lovenox) 30 mg SC DAILY ANA PRN Reason: Protocol Last Admin: 11/18/17 08:34 Dose: 30 mg Ferrous Sulfate (Feosol) 325 mg PO DAILY [facility] Last Admin: 11/18/17 08:32 Dose: 325 mg Fluticasone Propionate (Flonase) 2 spr STEPHEN DAILY PRN PRN Reason: ALLERGY SYMPTOMS Folic Acid (Folic Acid) 1 mg PO DAILY [facility] Last Admin: 11/18/17 08:32 Dose: 1 mg Guaifenesin/Codeine Phosphate (Robitussin W/Codeine) 5 ml PO QID [facility] Last Admin: 11/17/17 22:10 Dose: 5 ml Home Med (Febuxostat [Uloric]) 40 mg PO DAILY [facility] Last Admin: 11/18/17 08:32 Dose: 40 mg Home Med (Solifenacin Succinate [Vesicare]) 10 mg PO HS [facility] Levofloxacin/Dextrose (Levaquin 750mg) 750 mg in 150 mls @ 100 mls/hr IVPB DAILY [facility] Last Admin: 11/18/17 08:37 Dose: 100 mls/hr Insulin Human Lispro (Humalog) 0 units SC ACHS [facility] PRN Reason: Protocol Last Admin: 11/18/17 08:33 Dose: Not Given Loratadine (Claritin) 10 mg PO DAILY [facility] Last Admin: 11/18/17 08:36 Dose: 10 mg Magnesium Oxide (Mag-Ox) 400 mg PO DAILY [facility] Last Admin: 11/18/17 08:34 Dose: 400 mg Metformin HCl (Glucophage) [facility] Last Admin: 11/18/17 08:33 Dose: 500 mg Methylprednisolone (Solu-Medrol) 30 mg IVP DAILY [facility] Last Admin: 11/18/17 08:35 Dose: 30 mg Multivitamins/Minerals (Therapeutic-M Tab) 1 tab PO DAILY [facility] Last Admin: 11/18/17 08:35 Dose: 1 tab Oxycodone/Acetaminophen (Percocet 5/325 Mg Tab) 1 tab PO Q4 PRN PRN Reason: Pain, moderate (4-7) Stop: 11/18/17 21:51 Sennosides (Senokot Tab) 8.6 mg PO DAILY [facility] Last Admin: 11/18/17 08:35 Dose: 8.6 mg Tramadol HCl (Ultram) 50 mg PO Q4 PRN PRN Reason: Pain, Mild (1-3) Zolpidem Tartrate (Ambien) 5 mg PO [facility] Last Admin: 11/17/17 22:08 Dose: 5 mg - Labs Labs: 11/18/17 05:00 11/18/17 05:00 PT 10.4 Seconds (9.8-13.1) 11/15/17 19:52 INR 0.9 (0.9-1.2) 11/15/17 19:52 APTT 27.8 Seconds (25.6-37.1) 11/15/17 19:52 Assessment and Plan (1) Acute bronchitis Status: Acute (2) Asthma exacerbation Status: Acute (3) Pulmonary infiltrate Status: Chronic
[2017-11-18] MEDS ORDERED: MethylPREDNISolone 40 mg Vial IVP SCH (09:00)
[2017-11-18] MEDS ORDERED: methylPREDNISolone 30 MG in Sodium Chloride 0.9% 50 ML IV SCH (09:00)
[2017-11-18] MEDS: guaiFENesin-Codeine 100-10mg/5ml Syrup (5 ml) UD PO SCH ×2 (09:32→12:48)
--- NOTE | 2017-11-18 11:15 | CP.PCM.DIS ---
Provider - Provider Date of Admission: 11/16/17 19:23 Attending physician: Teagan Roberts MD Time Spent in preparation of Discharge (in minutes): 25 Diagnosis - Discharge Diagnosis (1) Acute bronchitis Status: Acute Hospital Course - Lab Results Lab Results: Micro Results 11/15/17 21:12 Urine,Clean Catch Urine Culture - Final Proteus Mirabilis 11/15/17 20:10 Blood Blood Culture - Preliminary NO GROWTH AFTER 48 HOURS 11/15/17 19:40 Blood Blood Culture - Preliminary NO GROWTH AFTER 48 HOURS Most Recent Lab Values WBC 8.4 K/uL (4.8-10.8) 11/18/17 05:00 RBC 3.69 Mil/uL (3.80-5.20) L 11/18/17 05:00 Hgb 12.1 g/dL (12.0-16.0) 11/18/17 05:00 Hct 35.1 % (34.0-47.0) 11/18/17 05:00 MCV 95.1 fl (81.0-99.0) 11/18/17 05:00 MCH 32.8 pg (27.0-31.0) H 11/18/17 05:00 MCHC 34.5 g/dL (33.0-37.0) 11/18/17 05:00 RDW 14.3 % (11.5-14.5) 11/18/17 05:00 Plt Count 215 K/uL (130-400) 11/18/17 05:00 MPV 8.2 fl (7.2-11.7) 11/15/17 19:52 Neut % (Auto) 88.8 % (50.0-75.0) H 11/15/17 19:52 Lymph % (Auto) 8.5 % (20.0-40.0) L 11/15/17 19:52 [place] % (Auto) 2.5 % (0.0-10.0) 11/15/17 19:52 Eos % (Auto) 0.0 % (0.0-4.0) 11/15/17 19:52 Baso % (Auto) 0.2 % (0.0-2.0) 11/15/17 19:52 Neut # (Auto) 9.3 K/uL (1.8-7.0) H 11/15/17 19:52 Lymph # (Auto) 0.9 K/uL (1.0-4.3) L 11/15/17 19:52 [place] # (Auto) 0.3 K/uL (0.0-0.8) 11/15/17 19:52 Eos # (Auto) 0.0 K/uL (0.0-0.7) 11/15/17 19:52 Baso # (Auto) 0.0 K/uL (0.0-0.2) 11/15/17 19:52 Neutrophils % (Manual) 84 % (42-75) H 11/15/17 19:52 Band Neutrophils % 3 % (0-2) H 11/15/17 19:52 Lymphocytes % (Manual) 6 % (20-50) L 11/15/17 19:52 Reactive Lymphs % 5 % (0-0) H 11/15/17 19:52 Monocytes % (Manual) 2 % (0-10) 11/15/17 19:52 Platelet Estimate Normal (NORMAL) 11/15/17 19:52 Hypochromasia (manual) Slight 11/15/17 19:52 Poikilocytosis (manual Slight 11/15/17 19:52 Anisocytosis (manual) Slight 11/15/17 19:52 Macrocytosis (manual) Slight 11/15/17 19:52 Spherocytes Slight 11/15/17 19:52 Tear Drop Cells Slight 11/15/17 19:52 Ovalocytes Slight 11/15/17 19:52 PT 10.4 Seconds (9.8-13.1) 11/15/17 19:52 INR 0.9 (0.9-1.2) 11/15/17 19:52 APTT 27.8 Seconds (25.6-37.1) 11/15/17 19:52 Sodium 143 mmol/l (132-148) 11/18/17 05:00 Potassium 3.8 MMOL/L (3.6-5.0) 11/18/17 05:00 Chloride 106 mmol/L (98-107) 11/18/17 05:00 Carbon Dioxide 27 mmol/L (22-30) 11/18/17 05:00 Anion Gap 14 (10-20) 11/18/17 05:00 BUN 26 mg/dl (7-17) H 11/18/17 05:00 Creatinine 0.8 mg/dl (0.7-1.2) 11/18/17 05:00 Est GFR ( Amer) > 60 11/18/17 05:00 Est GFR (Non-Af Amer) > 60 11/18/17 05:00 POC Glucose (mg/dL) 102 mg/dL (65-110) 11/18/17 05:21 Random Glucose 106 mg/dL (65-105) H 11/18/17 05:00 Calcium 8.8 mg/dL (8.4-10.2) 11/18/17 05:00 Phosphorus 2.5 mg/dl (2.5-4.5) 11/15/17 19:52 Magnesium 2.1 MG/DL (1.6-2.3) 11/15/17 19:52 Total Bilirubin 0.3 mg/dl (0.2-1.3) 11/15/17 19:52 AST 29 U/L (14-36) 11/15/17 19:52 ALT 35 U/L (9-52) 11/15/17 19:52 Alkaline Phosphatase 88 U/L (38-126) 11/15/17 19:52 Troponin I < 0.0120 ng/mL (0.00-0.120) 11/16/17 10:36 NT-Pro-B Natriuret Pep 320 pg/ml (0-900) 11/15/17 19:52 Total Protein 6.4 G/DL (6.3-8.2) 11/15/17 19:52 Albumin 3.5 g/dL (3.5-5.0) 11/15/17 19:52 Globulin 2.9 gm/dL (2.2-3.9) 11/15/17 19:52 Albumin/Globulin Ratio 1.2 (1.0-2.1) 11/15/17 19:52 Thyroxine (T4) 6.32 ug/dl (5.5-11.0) 11/17/17 13:37 Total T3 0.617 nmol/L (1.49-2.60) L 11/17/17 13:37 TSH 3rd Generation 0.29 mIU/ML (0.46-4.68) L 11/17/17 06:00 Urine Color Yellow (YELLOW) 11/15/17 21:12 Urine Clarity Cloudy (Clear) 11/15/17 21:12 Urine pH 6.0 (5.0-8.0) 11/15/17 21:12 Ur Specific [place] 1.025 (1.003-1.030) 11/15/17 21:12 Urine Protein 100 mg/dL (NEGATIVE) 11/15/17 21:12 Urine Glucose (UA) >=500 mg/dL (Normal) 11/15/17 21:12 Urine Ketones Negative mg/dL (NEGATIVE) 11/15/17 21:12 Urine Blood Small (NEGATIVE) 11/15/17 21:12 Urine Nitrate Negative (NEGATIVE) 11/15/17 21:12 Urine Bilirubin Negative (NEGATIVE) 11/15/17 21:12 Urine Urobilinogen 0.2-1.0 mg/dL (0.2-1.0) 11/15/17 21:12 Ur Leukocyte Esterase Mod [place]ie/uL (Negative) 11/15/17 21:12 Urine RBC (Auto) 19 /hpf (0-3) H 11/15/17 21:12 Urine Microscopic WBC 95 /hpf (0-5) H 11/15/17 21:12 Ur Squamous Epith Cells 1 /hpf (0-5) 11/15/17 21:12 Urine Bacteria Occ (<OCC) H 11/15/17 21:12 Influenza Typ A,B (EIA) Negative for flu a/b (NEGATIVE) 11/15/17 19:48 Blood Type O POSITIVE 11/15/17 19:40 Antibody Screen Negative 11/15/17 19:40 BBK History Checked Patient has bt 11/15/17 19:40 - Hospital Course Hospital Course: 87 yo F pmhx of previously completed treatment of TB, DM, HTN, RA presented with acute bronchitis/asthma exacerbation. 1) Acute bronchitis/asthma exacerbation: - CT chest: 1. Further reduction though mild and cavitary lesion of the right apex with stable limited cavitary lesion at the left apex. Associated nodularity cyst is again seen surrounding the right-sided cavitary lesion and is minimally scattered at the bilateral upper lobes and minimally at the right lower lobe once again. Findings likely a reflects granulomatous disease though other infectious or inflammatory causes are not excluded. 2. Pulmonary artery hypertension again evident. - Pulmonary consulted: Dr. 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 Discharge on tapered medrol dose pack 4 mg tab po daily #21 and Magnesium oxide 500 mg capsule PO DAILY 2) Cavitary lesions: residual from completed treatment of TB; MRI brain: no new lesions 3) UTI: UCX: positive for GNR: Proteus Mirabilis. D/C on Levofloxacin 750 mg tab PO DAILY #5 4) Acute Sinusitis: R maxillary sinus, on MRI: D/C on Levofloxacin 750 mg tab PO DAILY #5 5) Multinodular Thyroid gland: via thyroid US: multiple bl nodules, largest measuring 2.1 cm on R lower pole; TSH: 0.29; T3: 0.61; T4: 6.32; Endocrine: Dr. Allen: obtain comprehensive thyroid hormonal profile including thryoid Ab for confirmation of autoimmunity. no indication for thyroid pharmacotherapy. f/u hba1c: 6) DM2: uncontrolled likely 2/2 steroids: dc on: Metformin 500 mg PO Qdaily Pt stable and discharged on : Gauifenesin/codeine 5 ml PO QID; Methotrexate 2.5 mg PO DAILY ; omeprazole 40 mg cap po daily to f/u with PMD: Dr. Armendariz Discharge Exam - Head Exam Head Exam: NORMAL INSPECTION, NORMOCEPHALIC Discharge Plan - Discharge Medications Prescriptions: guaiFENesin/Codeine [Robitussin w/Codeine] 5 ml PO QID #100 ml levoFLOXacin [Levaquin] 750 mg PO DAILY #5 tab Methylprednisolone [Medrol Dose Pack (21 tabs)] 4 mg PO DAILY #21 mg - Follow Up Plan Condition: FAIR Disposition: HOME/ ROUTINE Instructions: Urinary Tract Infections in Adults, Acute Bronchitis, Adult (DC) , Urinary Tract Infection, Adult (DC), Acute Bronchitis
--- NOTE | 2017-11-21 08:51 | PN ---
ENDOCRINOLOGY FOLLOWUP NOTE DATE: LOCATION: Room 665. SUBJECTIVE: This is an 87-year-old female with recent acute exacerbation of COPD with asthmatic bronchitis and started on IV steroid therapy with improving clinical and hemodynamic parameters. Her glycemic levels are fluctuating, but improved at this time. She remains clinically and biochemically euthyroid as noted. Her latest chemistry showed a BUN of 26, sodium 143, potassium 3.8, chloride 106, CO2 of 27, glucose 106 and creatinine 0.8. Her glucose levels have ranged from 102 to 143 mg/dL. Her thyroid studies showed a T4 of 6.32 with a TSH of 0.29. Moreover, her thyroid ultrasound showed the presence of a multinodular goiter with bilateral small nodules as noted. She has no overt compressive or obstructive manifestations otherwise. ASSESSMENT: This is an 87-year-old female who remains clinically and biochemically euthyroid at this time with the so-called acute sick euthyroid syndrome and superimposed TSH suppression from the intercurrent IV steroid therapy as given. She also has type 2 diabetes controlled on oral hypoglycemic therapy with mild hyperglycemic accelerations related to the intercurrent IV steroid therapy as given. PLAN OF MANAGEMENT: As discussed with the staff; we will continue the current medical management and there is no indication for any kind of thyroid pharmacotherapy. Should expect improvement of her biochemical indices as the clinical status improves and also has the IV steroids are tapered down and discontinued. We will obtain serial chemistries and supplement accordingly needed. We will follow. Jaye Allen MD
== END 2017-11-18 14:48 | disposition home or self-care (01) | DRG 202 ==
LOC: H.ER 17:50 → H.EROBSV 21:26 → H.ERHOLD 11-16 08:02 → H.MEDSURG1 11-16 18:40 → OBSVTOIN 11-16 19:23
PROVIDERS: ADMIT Internal Medicine; ATTEND Internal Medicine
PROC: 3E0F73Z Introduction of Anti-inflammatory into Respiratory Tract, Via Natural or Artificial Opening (ICD-10-PCS; principal; 2017-11-16)
DX: J45.901 Unspecified asthma with (acute) exacerbation (principal); J20.9 Acute bronchitis, unspecified; A15.0 Tuberculosis of lung; N39.0 Urinary tract infection, site not specified; I27.21 Secondary pulmonary arterial hypertension; E11.65 Type 2 diabetes mellitus with hyperglycemia; J98.4 Other disorders of lung; B96.4 Proteus (mirabilis) (morganii) as the cause of diseases classified elsewhere; J01.00 Acute maxillary sinusitis, unspecified; I11.9 Hypertensive heart disease without heart failure; E04.2 Nontoxic multinodular goiter; E07.81 Sick-euthyroid syndrome; E78.5 Hyperlipidemia, unspecified; E78.00 Pure hypercholesterolemia, unspecified; M06.9 Rheumatoid arthritis, unspecified; M81.0 Age-related osteoporosis without current pathological fracture; M10.9 Gout, unspecified; G93.9 Disorder of brain, unspecified; F41.9 Anxiety disorder, unspecified; Z86.11 Personal history of tuberculosis; Z87.01 Personal history of pneumonia (recurrent); Z79.84 Long term (current) use of oral hypoglycemic drugs; Z87.891 Personal history of nicotine dependence; Z88.0 Allergy status to penicillin